=== PATIENT | female | born 1990 | race Caucasian/White ===

== ENCOUNTER 2016-08-22 17:19 | Outpatient (CLI) | payer MEDICAID ==
--- NOTE | 2016-08-22 18:01 | L&D Flow Sheet ---
LD Flowsheet Datetime Report Generated by CPN: 08/22/2016 18:00 Datetime: 08/22/2016 17:54 Vital Signs NBP Sys/Rosalba/Mean (mmHg): 109 (QS system process) : 57 (QS system process) : 76 (QS system process) Pulse: 109 (QS system process) Datetime: 08/22/2016 17:47 Pain Pain Scale: 2 (Deyanira Alonzo, RN) Pain Presence: Intermittent (Deyanira Baiadriel, RN) Pain Type: Cramping (Deyanira Baidy, RN) Pain Location: Abdomen (Annotations: top of abd) (Deyanira Alonzo, RN) Pain Goal: 1 (Deyanira Cheri, RN) Vaginal Exam Membrane Status: Intact (Deyanira Baidy, RN) Vaginal Bleeding: None (Deyanira Baidy, RN) Maternal Assessment Level of Consciousness: Fully Conscious (Deyanira Alonzo RN) DTR's/Clonus: DTRs 2+; No Clonus (Deyanira Alonzo RN) Headache: Denies; Frontal (Annotations: left sided) (Deyanira Alonzo RN) Breath Sounds, Left: Clear and Equal (Deyanira Alonzo RN) Breath Sounds, Right: Clear and Equal (Deyanira Alonzo RN) Nausea/Vomiting: Present (Deyanira Alonzo RN) RUQ Epigastric Pain: Denies (Deyanira Alonzo RN)
[2016-08-22 18:03] LABS: APPEARANCE,URINE CLOUDY; BILIRUBIN,URINE NEGATIVE (NEGATIVE); GLUCOSE, URINE NEGATIVE (NEGATIVE); KETONES,URINE NEGATIVE (NEGATIVE); LEUKOCYTE ESTERASE,URINE MODERATE (NEGATIVE); NITRITE,URINE NEGATIVE (NEGATIVE); PROTEIN,URINE 30 mg/dL (NEGATIVE); URINE SPECIFIC GRAVITY 1.025
[2016-08-22 18:19] LABS: URINE METHADONE SCREEN NEGATIVE; URINE OPIATES LOW NEGATIVE; URINE PHENCYCLIDINE SCREEN NEGATIVE
[2016-08-22 18:23] LABS: URINE BARBITURATES SCREEN UNCONFIRMED POSITIVE
[2016-08-22] MEDS ORDERED: RINGERS SOLUTION,LACTATED 1,000 ML IV PRN (18:24)
[2016-08-22] MEDS ORDERED: PROMETHAZINE HCL INJ 25 MG/1 ML VIAL IV ONE (18:24)
[2016-08-22] MEDS ORDERED: PROMETHAZINE HCL INJ 25 MG/1 ML VIAL ONE (19:01)
[2016-08-22 19:46] LABS: APPEARANCE,URINE SLIGHTLY-CLOUDY; BILIRUBIN,URINE NEGATIVE (NEGATIVE); GLUCOSE, URINE NEGATIVE (NEGATIVE); KETONES,URINE 80 mg/dL (NEGATIVE); LEUKOCYTE ESTERASE,URINE NEGATIVE (NEGATIVE); NITRITE,URINE NEGATIVE (NEGATIVE); PROTEIN,URINE 30 mg/dL (NEGATIVE); URINE SPECIFIC GRAVITY 1.027
[2016-08-22 20:00] LABS: ABSOLUTE EOSINOPHILS # (AUTO) 0.1 10^3/uL (0.0-0.6); ABSOLUTE MONOCYTES (AUTO) 0.7 10^3/uL (0.1-1.4); ABSOLUTE NEUT (AUTO) 5.9 10^3/uL (1.7-8.2); BASOPHILS % (AUTO) 0.3 % (0-2); EOSINOPHILS % (AUTO) 0.8 % (0-6); HEMOGLOBIN 11.6 g/dL (12.0-15.5); HGB HCT DIFFERENCE -0.2; LYMPHOCYTES % (AUTO) 12.9 % (13-45); MEAN CORPUSCULAR HEMOGLOBIN 29.6 pg (27.0-33.4); MEAN CORPUSCULAR HGB CONC 33.1 g/dL (32.0-36.0); MEAN CORPUSCULAR VOLUME 90 fl (80-97); MONOCYTES % (AUTO) 9.1 % (3-13); RED BLOOD COUNT 3.91 10^6/uL (3.72-5.28); RED CELL DISTRIBUTION WIDTH 15.8 % (11.5-14.0); SEGMENTED NEUTROPHILS % (AUTO) 76.9 % (42-78); WHITE BLOOD COUNT 7.7 10^3/uL (4.0-10.5)
--- NOTE | 2016-08-22 20:01 | L&D Flow Sheet ---
LD Flowsheet Datetime Report Generated by CPN: 08/22/2016 20:00 Datetime: 08/22/2016 19:55 NBP Sys/Rosalba/Mean (mmHg): 120 (QS system process) : 72 (QS system process) : 89 (QS system process) Pulse: 109 (QS system process) Datetime: 08/22/2016 19:34 Patient Care Comments: lab at bedside (Griselda Fabio, RN) Datetime: 08/22/2016 19:29 NBP Sys/Rosalba/Mean (mmHg): 112 (QS system process) : 63 (QS system process) : 81 (QS system process) Pulse: 107 (QS system process) Datetime: 08/22/2016 19:28 Patient Care Comments: pt. states that her nausea has decreased since the phenergan has infused (Griselda Fabio, RN) Datetime: 08/22/2016 19:22 I/O Interventions: Up to BR (Griselda Fabio, RN) Datetime: 08/22/2016 19:15 Patient Care Comments: straight cath for UA per MD order obtained (Griselda Afbio, RN) Datetime: 08/22/2016 19:04 Monitor Mode: External; Palpation (Deyanira Cheri, RN) Frequency (min): denies (Deyanira Alonzo, RN) Monitor Mode: External US (Deyanira Cheri, RN) FHR Baseline Rate : 145 (Deyanira Alonzo, RN) Variability: Moderate 6-25 bpm (Deyanira Baiadriel, RN) Accelerations: None (Deyanira Baidy, RN) Decelerations: None (Deyanira Baiadriel, RN) Communication Comments: orders received to d/c external US and only monitor with toco. (Deyanira Baidy, RN) Datetime: 08/22/2016 19:02 Antiemetics/Antacids: Phenergan IV (mg) @ 25 (Deyanira Baidy, RN) Datetime: 08/22/2016 18:46 IV/Blood Work: IV Bolus Started (Deyanira Baidy, RN) Patient Care Comments: 20g in right forearm (Deyanira Priyankady, RN) Datetime: 08/22/2016 18:24 NBP Sys/Rosalba/Mean (mmHg): 95 (QS system process) : 58 (QS system process) : 68 (QS system process) Pulse: 113 (QS system process) Datetime: 08/22/2016 18:23 Notification Reason: Status Update; Status; Lab/Diagnostic Study (Deyanira Alonzo RN) Communication Comments: Dr Soriano informed of pt complaint of abd pain, nausea, vomiting, fatigue, headache. Orders recieved for cbc, cmp, cath ua, IV bolus and phenergan. (Deyanira Alonzo RN) Datetime: 08/22/2016 18:15 Frequency (min): denies (Deyanira Alonzo RN) Monitor Mode: External US (Deyanira Alonzo RN) FHR Baseline Rate : 145 (Deyanira Alonzo RN) Variability: Moderate 6-25 bpm (Deyanira Alonzo RN) Accelerations: None (Deyanira Alonzo RN) Decelerations: None (Deyanira Alonzo RN)
[2016-08-22 20:15] LABS: ALANINE AMINOTRANSFERASE 34 U/L (9-52); ALBUMIN 2.9 g/dL (3.5-5.0); ALKALINE PHOSPHATASE 55 U/L (38-126); ANION GAP 10 (5-19); ASPARTATE AMINO TRANSFERASE 23 U/L (14-36); BILIRUBIN,TOTAL 0.9 mg/dL (0.2-1.3); BLOOD UREA NITROGEN 5 mg/dL (7-20); CALCIUM 9.3 mg/dL (8.4-10.2); CARBON DIOXIDE 21 mmol/L (22-30); CHLORIDE 106 mmol/L (98-107); CREATININE RESULT 0.71 mg/dL (0.52-1.25); GLUCOSE 82 mg/dL (75-110); POTASSIUM 3.8 mmol/L (3.6-5.0); SODIUM 137.2 mmol/L (137-145)
[2016-08-22] MEDS ORDERED: ONDANSETRON HCL INJ/PF 4 MG/2 ML SDV IV ONE (20:25)
[2016-08-22] MEDS ORDERED: ONDANSETRON HCL INJ/PF 4 MG/2 ML SDV ONE (20:27)
== END 2016-08-22 21:14 | disposition home or self-care (01) ==
LOC: LC 17:19
PROVIDERS: ATTEND Specialist
PROC: 4A1HXCZ Monitoring of Products of Conception, Cardiac Rate, External Approach (ICD-10-PCS; principal; 2016-08-22)
DX: O26.892 Other specified pregnancy related conditions, second trimester (principal); R10.9 Unspecified abdominal pain; R11.2 Nausea with vomiting, unspecified; Z3A.27 27 weeks gestation of pregnancy
CPT/HCPCS: 59899; 36415; 85025; 80053; 81001; 80307; J2550; J2405